=== PATIENT | male | born 1985 ===

== ENCOUNTER 2018-01-15 12:15 | Emergency (ER) | payer SELFPAY ==
[2018-01-15 12:34] VITALS: RESP 18; BMI 28.1
--- NOTE | 2018-01-15 13:19 | ED PDOC ---
Arrival/HPI - General Chief Complaint: Substance Abuse Time Seen by Provider: 01/15/18 13:18 Historian: Patient - History of Present Illness Narrative History of Present Illness (Text): 01/15/18 13:19 32 year old male, with no significant past medical history, presents to the emergency department by EMS for evaluation for sweating and bizarre behavior s/p snorting cocaine earlier today. Patient was at a hotel with his friend when he snorted cocaine and began acting bizarre and sweating profusely. Patient admits to also drinking a little alcohol as well. Patient has done cocaine before, but never reacted like this before. Patient is a smoker and occasional drinker. Patient states he feels better. Patient denies any fever, chills, chest pain, shortness of breath, nausea, vomiting, diarrhea, urinary symptoms, back pain, n jean-pierre pain, headache, dizziness, or any other complaints. PMD: None Time/Duration: Other (earlier today) Symptom Onset: Sudden Symptom Course: Resolved Activities at Onset: Light Context: Other (hotel) Past Medical History - Provider Review Nursing Documentation Reviewed: Yes Family/Social History - Physician Review Nursing Documentation Reviewed: Yes Family/Social History: No Known Family HX Allergies/Home Meds Allergies/Adverse Reactions: Allergies No Known Allergies Allergy (Verified 01/15/18 12:30) Home Medications: Home Meds Medication Instructions Recorded Confirmed RX: No Known Home Med 01/15/18 01/15/18 Review of Systems - Physician Review All systems were reviewed & negative as marked: Yes - Review of Systems Constitutional: absent: Fevers, Other (Chills) Respiratory: absent: SOB Cardiovascular: absent: Chest Pain Gastrointestinal: absent: Diarrhea, Nausea, Vomiting Genitourinary Male: absent: Dysuria, Frequency, Hematuria Musculoskeletal: absent: Back Pain, Neck Pain Neurological: absent: Headache, Dizziness Endocrine: Diaphoresis Psychiatric: Other (bizarre behavior) Physical Exam Vital Signs Reviewed: Yes Vital Signs Temp Pulse Resp BP Pulse Ox 01/15/18 12:30 98.0 F 128 H 18 123/77 97 Temperature: Afebrile Blood Pressure: Normal Pulse: Tachycardic Respiratory Rate: Normal Appearance: Positive for: Well-Appearing, Non-Toxic, Comfortable Pain Distress: None Mental Status: Positive for: Alert and Oriented X 3 - Systems Exam Head: Present: Atraumatic, Normocephalic Pupils: Present: PERRL Extroacular Muscles: Present: EOMI Conjunctiva: Present: Normal Mouth: Present: Moist Mucous Membranes Neck: Present: Normal Range of Motion Respiratory/Chest: Present: Clear to Auscultation, Good Air Exchange. No: Respiratory Distress, Accessory Muscle Use Cardiovascular: Present: Normal S1, S2, Tachycardic. No: Murmurs Abdomen: No: Tenderness, Distention, Peritoneal Signs Back: Present: Normal Inspection Upper Extremity: Present: Normal Inspection. No: Cyanosis, Edema Lower Extremity: Present: Normal Inspection. No: Edema Neurological: Present: GCS=15, CN II-XII Intact, Speech Normal Skin: Present: Warm, Dry, Normal Color. No: Rashes Psychiatric: Present: Alert, Oriented x 3, Normal Insight, Normal Concentration Medical Decision Making ED Course and Treatment: 01/15/18 13:19 Impression: 32 year old male presents for evaluation of diaphoretic and bizarre behavior s/p snorting cocaine and drinking a little earlier today. Plan: -- Reassess and disposition Progress Notes: 01/15/18 14:58 On re-evaluation, heart rate improved to 90s, patient feels better and is in no acute distress. Patient has no complaints and has been tolerating PO fluids. I have discussed the results and plan with the patient, who expresses understanding. Patient in agreement with plan to be discharged home. Patient is stable for discharge. Patient was instructed to follow up with physician or return if symptoms worsen or new concerning symptoms arise. 01/15/18 15:12 - Scribe Statement The provider has reviewed the documentation as recorded by the Candice Sylvester Provider Scribe Attestation: All medical record entries made by the Josephibalice were at my direction and personally dictated by me. I have reviewed the chart and agree that the record accurately reflects my personal performance of the history, physical exam, medical decision making, and the department course for this patient. I have also personally directed, reviewed, and agree with the discharge instructions and disposition. Disposition/Present on Arrival - Present on Arrival Any Indicators Present on Arrival: No History of DVT/PE: No History of Uncontrolled Diabetes: No Urinary Catheter: No History of Decub. Ulcer: No History Surgical Site Infection Following: None - Disposition Have Diagnosis and Disposition been Completed?: Yes Diagnosis: Cocaine abuse Disposition: HOME/ ROUTINE Disposition Time: 15:03 Patient Problems: Current Active Problems Problem Status Onset Cocaine abuse Acute Condition: IMPROVED Discharge Instructions (ExitCare): Cocaine Use Disorder Print Language: PAKISTANI Additional Instructions: CLEMENTINE DORSEY, thank you for letting us take care of you today. Your provider was Adrienne Pyle MD and you were treated for ETOH. The emergency medical care you received today was directed at your acute symptoms. If you were prescribed any medication, please fill it and take as directed. It may take several days for your symptoms to resolve. Return to the Emergency Department if your symptoms worsen, do not improve, or if you have any other problems. Please contact your doctor or call one of the physicians/clinics you have been referred to that are listed on the Patient Visit Information form that is included in your discharge packet in 1-2 days for follow up appointment. Bring any paperwork you were given at discharge with you along with any medications you are taking to your follow up visit. Our treatment cannot replace ongoing medical care by a primary care provider outside of the emergency department. Thank you for allowing the [facility] team to be part of your care today. Referrals: Loly Marie MD [Medical Doctor] - Follow up with primary [facility] [place] [Outside] - Follow up with primary [facility] [Outside] - Follow up with primary Forms: [employer] (Yi)
[2018-01-15 18:29] VITALS: BP 127/81; PULSE 91; TEMP 98.2; O2SAT 99
== END 2018-01-15 15:30 | disposition home or self-care (01) ==
LOC: ED 12:15
DX: F14.10 Cocaine abuse, uncomplicated (principal)